=== PATIENT | female | born 1980 | race Caucasian/White ===

== ENCOUNTER → 2021-03-31 | Outpatient (CLI) | payer OTHER | LOC: MC.RAD 03-21 08:45 | DX: Z12.31 Encounter for screening mammogram for malignant neoplasm of breast (principal); N63.20 Unspecified lump in the left breast, unspecified quadrant ==

== ENCOUNTER → 2021-04-28 | Outpatient (CLI) | payer OTHER | LOC: MC.RAD 09:01 | DX: R92.8 Other abnormal and inconclusive findings on diagnostic imaging of breast (principal) ==

== ENCOUNTER → 2021-05-02 | Outpatient (CLI) | payer OTHER | LOC: MC.RAD 10:58 | DX: N63.20 Unspecified lump in the left breast, unspecified quadrant (principal) ==